=== PATIENT | male | born 1965 | race Caucasian/White ===

== ENCOUNTER 2016-10-08 10:49 | Emergency (ER) | payer MEDICAID ==
[~2016-10-08] VITALS: Ht 162.6 cm; Wt 72.1 kg
[2016-10-08 10:59] VITALS: BP 143/78
--- NOTE | 2016-10-08 12:03 | NUR ---
50M BIB FAMILY C/O RIGHT LEG PAIN S/P SLIP AND FALL MOVING A BOX ON A TRUCK; PT STATES NO LOC AT TIME OF INCIDENT. HX: DM, HTN .RX: PT CANNOT RECALL NAMES AT THIS TIMEPATIENT DENIES N/V/D; SKIN IS PINK/WARM/DRY; AAOX4 WITH EVEN AND UNSTEADY GAIT; LUNGS CLEAR BL; HR EVEN AND REGULAR; PT DENIES ANY FEVER, CP, SOB, OR COUGH AT THIS TIME; PATIENT STATES PAIN OF 10/10 AT THIS TIME; VSS; PATIENT POSITIONED FOR COMFORT; HOB ELEVATED; BEDRAILS UP X2; BED DOWN. ER MD MADE AWARE OF PT STATUS.
--- NOTE | 2016-10-08 12:03 | NUR ---
Patient ambulated to bed 4 with family. RN evaluating patient at bedside.
[2016-10-08] MEDS ORDERED: KETOROLAC 60 MG/2 ML VIAL IM ONE (13:00)
--- NOTE | 2016-10-08 13:45 | NUR ---
Patient appears to be resting comfortably in bed. Vital Signs within normal limits. Respirations even and unlabored.WILL CONTINUE TO MONITOR,
--- NOTE | 2016-10-08 13:55 | NUR ---
ER MD DR GRIMM REEVALUATING PT AT BEDSIDE
--- NOTE | 2016-10-08 14:22 | NUR ---
SARANYA WRAP DONE BY KENA ESTRADA
[2016-10-08 14:24] VITALS: BP 179/81
--- NOTE | 2016-10-08 14:25 | NUR ---
Patient discharged with 179/81; DENIES HEADACHE OR DIZINESS AWARE. Written and verbal after care instructions given and explained. Patient alert, oriented and verbalized understanding of instructions. Ambulatory with CRUTCHES. All questions addressed prior to discharge. ID band removed. Patient advised to follow up with PMD. Rx of NAPROSYN given. Patient educated on indication of medication including possible reaction and side effects. Opportunity to ask questions provided and answered.
== END 2016-10-08 14:25 | disposition home or self-care (01) ==
LOC: MED 10:49
DX: S89.91XA Unspecified injury of right lower leg, initial encounter (principal); M25.461 Effusion, right knee; M17.11 Unilateral primary osteoarthritis, right knee; I10 Essential (primary) hypertension; E11.9 Type 2 diabetes mellitus without complications; W01.0XXA Fall on same level from slipping, tripping and stumbling without subsequent striking against object, initial encounter; Y93.89 Activity, other specified; Y92.812 Truck as the place of occurrence of the external cause; Y99.8 Other external cause status
CPT/HCPCS: 73552; 73562; 82948; 96372; 99284; J1885

== ENCOUNTER 2022-12-26 15:15 | Emergency (ER) | payer MEDICAID ==
[~2022-12-26] VITALS: Ht 157.5 cm; Wt 54.4 kg
[2022-12-26 15:24] VITALS: BP 138/77; PULSE 110; RESP 22; TEMP 97.8; O2SAT 98
[2022-12-26] MEDS ORDERED: fentaNYL citrate 0.05 MG/ML VIAL IM ONE (17:30)
[2022-12-26] MEDS ORDERED: SODIUM PHOSPHATE 118 ML ENEM RC ONE ×2 (18:40→20:15)
[2022-12-26] MEDS ORDERED: GLYCERIN ADULT 1 SUPP RC ONE (18:40)
[2022-12-26 19:07] VITALS: O2SAT 98
[2022-12-26] MEDS ORDERED: MAGN296S48 PO (20:28)
[2022-12-26 21:26] VITALS: BP 147/66; PULSE 92; RESP 18; TEMP 97.9; O2SAT 98
== END 2022-12-26 21:25 | disposition home or self-care (01) ==
LOC: MED 15:15
DX: K56.41 Fecal impaction (principal); E11.9 Type 2 diabetes mellitus without complications; I10 Essential (primary) hypertension; Z79.899 Other long term (current) drug therapy
CPT/HCPCS: 74176; 96372; 99285; J3010

== ENCOUNTER 2023-04-05 15:44 | Inpatient (IN) | payer MEDICAID ==
[~2023-04-05] VITALS: Ht 167.6 cm; Wt 63.5 kg
[~2023-04-05 15:44] MED LIST: MAGN296S48 PO
[2023-04-05 15:49] VITALS: BP 138/81; PULSE 76; RESP 16; TEMP 96.5; O2SAT 100
[2023-04-05] MEDS ORDERED: METOCLOPRAMIDE 10 MG/2 ML INJ VIAL IM ONE (16:20)
[2023-04-05 16:33] LABS: BASOPHILS % (AUTO) 0.6 % (0.0-2.0); EOSINOPHILS % (AUTO) 0.4 % (0.0-4.0); HEMATOCRIT 31.6 % (36-52); HEMOGLOBIN 11.5 g/dL (12.0-18.0); LYMPHOCYTES # (AUTO) 1.1 K/uL (2.0-11.5); LYMPHOCYTES % (AUTO) 13.7 % (20.5-51.1); MEAN CORPUSCULAR HEMOGLOBIN 34 pg (27-31); MEAN CORPUSCULAR HGB CONC 36 g/dL (33-37); MEAN CORPUSCULAR VOLUME 92.3 fL (80-94); MONOCYTES # (AUTO) 0.4 K/uL (0.8-1.0); MONOCYTES % (AUTO) 4.5 % (1.7-9.3); NEUTROPHILS # (AUTO) 6.8 K/uL (1.8-7.7); NEUTROPHILS % (AUTO) 80.8 % (42.2-75.2); PLATELET COUNT (AUTO) 306 K/uL (140-450); RED BLOOD CELL COUNT(AUTO) 3.42 MIL/uL (4.20-6.10); RED CELL DISTRIBUTION WIDTH 12.5 % (11.6-13.7); WHITE BLOOD COUNT (AUTO) 8.4 K/uL (4.8-10.8)
[2023-04-05 16:49] LABS: ALANINE AMINOTRANSFERASE 16 U/L (12-78); ALBUMIN 3.7 g/dL (3.4-5.0); ALKALINE PHOSPHATASE 121 U/L (50-136); ASPARTATE AMINOTRANSFERASE 15 U/L (15-37); CALCIUM 9.5 mg/dL (8.5-10.1); CARBON DIOXIDE 29.8 mmol/L (21-32); CHLORIDE 97 mmol/L (98-107); CREATININE 2.4 mg/dL (0.6-1.3); GFR ARICAN-AMERICAN 36 mL/min (>90); GFR NON ARICAN-AMERICAN 30 mL/min (>90); GLUCOSE 166 mg/dL (74-106); LIPASE 52 U/L (16-77); POTASSIUM 3.8 mmol/L (3.5-5.1); SODIUM SERUM 137 mmol/L (136-145); TOTAL BILIRUBIN 0.6 mg/dL (0.0-1.0); TOTAL PROTEIN, SERUM 8.6 g/dL (6.4-8.2); UREA NITROGEN, BLOOD 33 mg/dL (7-18)
[2023-04-05] MEDS ORDERED: NACL 0.9% 1,000 ML IV ONE (16:50)
[2023-04-05] MEDS ORDERED: ASPIRIN 81 MG TAB.CHEW PO ONE (17:00)
[2023-04-05] MEDS ORDERED: LISI-487 PO (18:15)
[2023-04-05] MEDS ORDERED: ASPI-1749 PO (18:15)
[2023-04-05] MEDS ORDERED: SERT25TA PO (18:15)
[2023-04-05] MEDS ORDERED: METF-346 PO (18:15)
[2023-04-05] MEDS ORDERED: QUET25TA PO (18:15)
[2023-04-05] MEDS ORDERED: ROSU40TA PO (18:15)
[2023-04-05] MEDS ORDERED: NITROGLYCERIN 0.4 MG TAB SL PRN (20:05)
[2023-04-05] MEDS ORDERED: MORPHINE SULFATE 2 MG/ML SYR IVP PRN (20:05)
[2023-04-05] MEDS ORDERED: HYDROcodone/APAP 5/325 MG 1 TAB TAB PO PRN (20:05)
[2023-04-05] MEDS ORDERED: ACETAMINOPHEN 325 MG TAB PO PRN ×3 (20:05)
[2023-04-05] MEDS ORDERED: HEPARIN PER PHARMACY MC PRN (20:20)
[2023-04-05] MEDS: METOPROLOL 25 MG TAB PO SCH (20:29)
[2023-04-05] MEDS: NACL 0.9% 1,000 ML IV SCH (20:39)
[2023-04-05] MEDS ORDERED: QUEtiapine FUMARATE 25 MG TAB PO SCH (22:45)
[2023-04-05 22:47] VITALS: O2SAT 99
[2023-04-05 23:44] LABS: INR 0.99 (0.8-1.2); PARTIAL THROMBOPLASTIN TIME 24.1 secs (22-35.6); PROTHROMBIN TIME 10.4 secs (10.8-13.4)
[2023-04-06] VITALS (9 sets, daily range): BP systolic 147–171; BP diastolic 72–75; PULSE 54–66; RESP 18–19; TEMP 97–98.4; O2SAT 96–99
[2023-04-06 07:01] LABS: BASOPHILS # (AUTO) 0.1 K/uL (0.00-0.22); BASOPHILS % (AUTO) 0.8 % (0.0-2.0); EOSINOPHILS # (AUTO) 0.1 K/uL (0-0.4); EOSINOPHILS % (AUTO) 1.3 % (0.0-4.0); HEMATOCRIT 32.4 % (36-52); HEMOGLOBIN 11.6 g/dL (12.0-18.0); LYMPHOCYTES # (AUTO) 1.2 K/uL (2.0-11.5); LYMPHOCYTES % (AUTO) 13.8 % (20.5-51.1); MEAN CORPUSCULAR HEMOGLOBIN 33 pg (27-31); MEAN CORPUSCULAR HGB CONC 36 g/dL (33-37); MEAN CORPUSCULAR VOLUME 92.4 fL (80-94); MONOCYTES # (AUTO) 0.4 K/uL (0.8-1.0); NEUTROPHILS # (AUTO) 6.7 K/uL (1.8-7.7); NEUTROPHILS % (AUTO) 79.1 % (42.2-75.2); PLATELET COUNT (AUTO) 283 K/uL (140-450); RED BLOOD CELL COUNT(AUTO) 3.51 MIL/uL (4.20-6.10); RED CELL DISTRIBUTION WIDTH 12.4 % (11.6-13.7); WHITE BLOOD COUNT (AUTO) 8.4 K/uL (4.8-10.8)
[2023-04-06 07:21] LABS: ANION GAP 16.4 (8-16); CALCIUM 9.1 mg/dL (8.5-10.1); CREATININE 2.1 mg/dL (0.6-1.3); POTASSIUM 3.4 mmol/L (3.5-5.1)
[2023-04-06 07:32] LABS: CHOL/HDL RATIO 2.7 (1-4.5); MAGNESIUM 1.9 mg/dL (1.8-2.4)
[2023-04-06] MEDS: ASPIRIN 81 MG TAB.CHEW PO SCH (09:08)
[2023-04-06] MEDS: ATORVASTATIN 20 MG TAB PO SCH (09:09)
[2023-04-06] MEDS: METOPROLOL 25 MG TAB PO SCH ×2 (09:11→20:33)
[2023-04-06] MEDS: hePARIN / DEXT 5% PREMIX 250 ML IV SCH ×2 (09:15→16:09)
[2023-04-06] MEDS ORDERED: hydrALAZINE 10 MG TAB PO PRN (10:05)
[2023-04-06] MEDS: NACL 0.9% 1,000 ML IV SCH (10:53)
[2023-04-06] MEDS ORDERED: DEXTROSE 50% 50 ML SYR IVP PRN (11:10)
[2023-04-06] MEDS ORDERED: INSULIN LISPRO SLIDING SCALE 100 UNITS/ML VIAL SUBQ PRN (11:10)
[2023-04-06] MEDS: BLOOD GLUCOSE MONITORING 1 DEV DEV FS SCH ×3 (11:25→20:32)
[2023-04-06] MEDS ORDERED: POTASSIUM CHLORIDE 10 MEQ TABER PO SCH (11:30)
[2023-04-06 21:36] LABS: APPEARANCE,URINE CLEAR (CLEAR); BILIRUBIN,URINE NEGATIVE (NEGATIVE); BLOOD, URINE TRACE-I (NEGATIVE); COLOR,URINE YELLOW (YELLOW); LEUKOCYTE ESTERASE ,URINE NEGATIVE (NEGATIVE); NITRITE, URINE NEGATIVE (NEGATIVE); PH,URINE 7.5 (5.0-9.0); PROTEIN,URINE 2+ (NEGATIVE); UGLUCOSE 1+ (NEGATIVE); UROBILINOGEN,URINE 0.2 EU/dL (0.2 - 1)
[2023-04-06 21:46] LABS: RBC,URINE 0-5 /HPF (0-5); WBC,URINE 0-5 /HPF (0-5)
[2023-04-06 21:47] LABS: BACTERIA,URINE 10-30 (MOD) /HPF (None Seen); SQUAMOUS EPITHELIAL CELL,UR 0-3 (FEW) /LPF (0-3 (FEW))
[2023-04-07] VITALS: BP 129/89; PULSE 55; PULSE 57; RESP 21; TEMP 98.3; O2SAT 94
[2023-04-07] MEDS: NACL 0.9% 1,000 ML IV SCH (00:41)
[2023-04-07] MEDS: hePARIN / DEXT 5% PREMIX 250 ML IV SCH (00:53)
[2023-04-07 04:00] VITALS: BP 139/76; PULSE 55; PULSE 56; RESP 21; TEMP 98.8; O2SAT 93
[2023-04-07] MEDS: BLOOD GLUCOSE MONITORING 1 DEV DEV FS SCH (06:33)
[2023-04-07 07:00] VITALS: BP 148/67; PULSE 58; PULSE 64; RESP 18; TEMP 97.1; O2SAT 100
[2023-04-07 07:20] LABS: BASOPHILS # (AUTO) 0.1 K/uL (0.00-0.22); BASOPHILS % (AUTO) 0.8 % (0.0-2.0); EOSINOPHILS # (AUTO) 0.1 K/uL (0-0.4); HEMATOCRIT 31.5 % (36-52); HEMOGLOBIN 11.3 g/dL (12.0-18.0); LYMPHOCYTES # (AUTO) 1.1 K/uL (2.0-11.5); LYMPHOCYTES % (AUTO) 16.1 % (20.5-51.1); MEAN CORPUSCULAR HEMOGLOBIN 33 pg (27-31); MEAN CORPUSCULAR HGB CONC 36 g/dL (33-37); MEAN CORPUSCULAR VOLUME 92.4 fL (80-94); MONOCYTES # (AUTO) 0.4 K/uL (0.8-1.0); NEUTROPHILS # (AUTO) 5.4 K/uL (1.8-7.7); NEUTROPHILS % (AUTO) 76.1 % (42.2-75.2); PLATELET COUNT (AUTO) 310 K/uL (140-450); RED BLOOD CELL COUNT(AUTO) 3.41 MIL/uL (4.20-6.10); RED CELL DISTRIBUTION WIDTH 12.5 % (11.6-13.7); WHITE BLOOD COUNT (AUTO) 7.1 K/uL (4.8-10.8)
[2023-04-07 08:00] VITALS: PULSE 64; RESP 18; O2SAT 100
[2023-04-07] MEDS: ATORVASTATIN 20 MG TAB PO SCH (08:41)
[2023-04-07] MEDS: ASPIRIN 81 MG TAB.CHEW PO SCH (08:42)
[2023-04-07] MEDS: METOPROLOL 25 MG TAB PO SCH (08:42)
[2023-04-07 09:09] LABS: ANION GAP 14.4 (8-16); CALCIUM 9.2 mg/dL (8.5-10.1); CARBON DIOXIDE 25.5 mmol/L (21-32); CREATININE 1.9 mg/dL (0.6-1.3)
[2023-04-07 09:14] LABS: MAGNESIUM 1.7 mg/dL (1.8-2.4); PHOSPHORUS 3.1 mg/dL (2.5-4.9)
[2023-04-07] MEDS ORDERED: AMLO5TAB PO (09:46)
[2023-04-07] MEDS ORDERED: BLOO1EAC40 MC (09:46)
[2023-04-07] MEDS ORDERED: METO25TE2 PO (09:46)
[2023-04-07] MEDS ORDERED: HUMSLIDE SUBQ (09:46)
[2023-04-07] MEDS ORDERED: LANC-983 TP (09:46)
[2023-04-07] MEDS ORDERED: GLUC-805 FS (09:46)
[2023-04-07 09:54] LABS: POTASSIUM 2.9 mmol/L (3.5-5.1)
[2023-04-07] MEDS ORDERED: POTASSIUM CHLORIDE 10 MEQ TABER PO SCH (10:41)
== END 2023-04-07 12:15 | disposition home or self-care (01) | DRG 190 ==
LOC: MED 15:44 → MTU 20:17 → MIC 04-06 06:17 → MTU 04-06 11:43
PROVIDERS: ADMIT Family Medicine; ATTEND Family Medicine
DX: I21.4 Non-ST elevation (NSTEMI) myocardial infarction (principal); N17.0 Acute kidney failure with tubular necrosis; R65.11 Systemic inflammatory response syndrome (SIRS) of non-infectious origin with acute organ dysfunction; G81.94 Hemiplegia, unspecified affecting left nondominant side; E11.22 Type 2 diabetes mellitus with diabetic chronic kidney disease; D64.9 Anemia, unspecified; E78.5 Hyperlipidemia, unspecified; E87.6 Hypokalemia; I10 Essential (primary) hypertension; Z86.73 Personal history of transient ischemic attack (TIA), and cerebral infarction without residual deficits; I12.9 Hypertensive chronic kidney disease with stage 1 through stage 4 chronic kidney disease, or unspecified chronic kidney disease; N18.9 Chronic kidney disease, unspecified; I16.1 Hypertensive emergency; E86.0 Dehydration
CPT/HCPCS: 36415; 71045; 76770; 80048; 80053; 81001; 82948; 83690; 83735; 84100; 84484; 85025; 85610; 85730; 87081; 93005; 96360; 96372; 99285; J1644; J1815; J2765; Q0092